=== PATIENT | male | born 1995 | race American Indian/Alaskan Native ===

== ENCOUNTER 2020-06-21 01:15 | Emergency (ER) | payer OTHER ==
[2020-06-21 01:42] VITALS: BP 142/98
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
[2020-06-21] MEDS ORDERED: IBUPROFEN 800 MG TAB PO ONE (03:28)
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
== END 2020-06-21 04:47 | disposition home or self-care (01) ==
LOC: ED 01:15
DX: S39.012A Strain of muscle, fascia and tendon of lower back, initial encounter (principal); S16.1XXA Strain of muscle, fascia and tendon at neck level, initial encounter; M79.604 Pain in right leg; F17.200 Nicotine dependence, unspecified, uncomplicated; Z88.2 Allergy status to sulfonamides; Z88.1 Allergy status to other antibiotic agents; R03.0 Elevated blood-pressure reading, without diagnosis of hypertension; V89.2XXA Person injured in unspecified motor-vehicle accident, traffic, initial encounter; Y93.89 Activity, other specified; Y92.410 Unspecified street and highway as the place of occurrence of the external cause; Y99.8 Other external cause status
CPT/HCPCS: 72040; 72070; 99283